=== PATIENT | male | born 1950 | race Caucasian/White ===

== ENCOUNTER 2016-06-02 09:27 | Day surgery (SDC) | payer OTHER, MEDICARE ==
[2016-05-31 17:41] VITALS: BMI 33.9
--- NOTE | 2016-06-02 08:22 | HP ---
[facility] - Chief Complaint Chief Complaint: left elbow pain - Past Medical History Allergies/Adverse Reactions: Allergies Allergy/AdvReac Type Severity Reaction Status Date / Time Penicillins Allergy Verified 05/31/16 17:25 - Current Medications Current Medications: Home Medications Medication Instructions Recorded Atorvastatin Ca [Lipitor] 20 mg PO DAILY 05/31/16 Enalapril Maleate 2.5 mg PO DAILY 05/31/16 Hydrocodone/Acetaminophen 1 each PO Q6H #40 tablet MDD 4 06/02/16 [Hydrocodon-Acetaminoph 7.5-325] Satellite Physical Exam - Physical Examination General Appearance: Well Nourished, Well Developed, Alert & Oriented x3 ENT: Clear Lung: Normal air movement Heart: Regular rate & rhythm Extremities: Other (left elbow- + ttp, + tinels emg + cubital tunnel syndrome) Neurological: Intact, Alert, Oriented Satellite Impression/Plan - Impression/Plan Impression: left elbow cubital tunnel syndrome Operative Procedure: left ulna nerve transposition Date to be Performed: 06/02/16
[2016-06-02] MEDS ORDERED: oxyCODONE HCL 5 MG TABLET PO PRN (10:59)
[2016-06-02] MEDS ORDERED: ACETAMINOPHEN 325 MG TABLET (FP) PO PRN (10:59)
[2016-06-02] MEDS ORDERED: ONDANSETRON 4 MG/2 ML VIAL IVPUSH PRN (10:59)
[2016-06-02] MEDS ORDERED: PROPOFOL 20 ML ONE ×2 (11:03)
[2016-06-02] MEDS ORDERED: MIDAZOLAM HCL 2 MG/2 ML SINGLE DOSE VIAL ONE (11:03)
[2016-06-02] MEDS ORDERED: ceFAZolin SODIUM 1 GM VIAL ONE (11:23)
[2016-06-02] MEDS ORDERED: ceFAZolin SODIUM 1 GM VIAL IVPB ONE (11:27)
[2016-06-02] MEDS ORDERED: LIDOCAINE HCL 1%, 10 MG/ML (20ML VIAL) IJ ONE (11:32)
[2016-06-02] MEDS ORDERED: BUPIVACAINE HCL/PF 0.5% (5MG/ML) 10 ML VIAL IJ ONE (11:32)
[2016-06-02] MEDS ORDERED: DEXAMETHASONE SOD PHOSPHATE 4 MG/1 ML VIAL ONE (11:58)
--- NOTE | 2016-06-02 12:12 | OP ---
Operative Note - Note: Operative Date: 06/02/16 ([facility]) Pre-Operative Diagnosis: left cubital tunnel syndrome Operation: left ulna nerve transposition- subcutaneous Post-Operative Diagnosis: Same as Pre-op Surgeon: Babatunde Lyles Corporate Development Associate: Lazaro Ramirez Anesthesiologist/NONDESTRUCTIVE TESTER: Krista Hernández Anesthesia: General, Local Estimated Blood Loss (mls): 0 (tourniquet) Operative Report Dictated: Yes
--- NOTE | 2016-06-02 12:59 | OP ---
DATE OF OPERATION: 06/02/2016 PREOPERATIVE DIAGNOSIS: Left elbow cubital tunnel syndrome. POSTOPERATIVE DIAGNOSIS: Left elbow cubital tunnel syndrome. PROCEDURE: Left elbow subcutaneous ulnar nerve transposition. SURGEON: Melchor Sadler MD APARTMENT PROPERTY MANAGER: LM Galeana; Krista Hernández CRNA ANESTHESIA: LMA anesthesia. DRAINS: None. INJECTION: Marcaine 0.5% of 15 mL and lidocaine 1% mixture. COMPLICATIONS: None. SPECIMENS: None. BLOOD LOSS: None. BLOOD GIVEN: None. FLUID REPLACEMENT: 500 mL. INDICATIONS: This patient is a 66-year-old male with the preoperative diagnosis of severe left cubital tunnel syndrome. After understanding the potential risks, complications, alternatives, and benefits of surgery, and the risks of nonsurgical treatment, the patient elected to undergo this procedure. DESCRIPTION OF PROCEDURE: The patient was brought to the operating room, peripheral IV placed, IV sedation was given, and 1 gram of IV Ancef was given. LMA anesthesia was induced. Ample Webril was placed on the left upper arm and tourniquet was applied. The left upper extremity was prepped and draped in sterile fashion, elevated, exsanguinated with an Esmarch bandage, and the tourniquet was inflated to 250 mmHg. A curvilinear incision was marked out with a marking pen over the medial epicondyle. Marcaine 15 mL of 0.5% and 1% lidocaine mixture was injected around the incision. The incision was made with a number 15 scalpel blade. Subcutaneous hemostasis was achieved with the bipolar cautery. Dissection done through the fat with Metzenbaum scissors. Self-retaining Weitlaner retractors were placed into the wound. The medial epicondyle and the origin of the flexor pronator mass was identified and blunt dissection was done the flexor pronator mass fascia from the undersurface of the adipose layer. Next, the Weitlaner retractors were placed deeper for better retraction and visualization. The ulnar nerve was identified first just proximal to medial epicondyle. Careful circumferential dissection was done as well as opening up the cubital tunnel. A Van drain with irrigation was passed around it for protection, mild retraction, and visualization. [place] was used to retract proximally. Circumferential dissection was done around the ulnar nerve. It was released from its tunnel as well as the medial head of the triceps and the medial intramuscular septum. Blunt dissection was done circumferentially more proximally with my index finger. We then turned our attention distal to the medial epicondyle. All crossing neurovascular structures were saved. Dissection was done circumferentially with the Metzenbaum scissors again. Steward ligament was cut. The 2 heads of the FCU were cut and I was able to transpose it anterior to the medial epicondyle. There were no significant points of compression. The area was copiously irrigated and washed out, and again the distal and proximal extensor ligaments were was checked with my finger. Next, we put the ulnar nerve down in its new bed and tacked down the adipose layer to the proximal tendon and periosteum of the medial epicondyle with 0 Vicryl suture. We then moved the elbow to confirm that the ulnar nerve was not bound down. The area was irrigated and washed out. Vicryl 2-0 was used to close the deep dermal layer and final skin reapproximation was done with running subcuticular 4-0 Biosyn stitch. It was washed and dried and then covered with Steri-Strips, 4 x 4 gauze, Webril, and a 5-inch posterior Ortho-Glass splint was applied and wrapped with James bandages. The tourniquet was taken down after a total tourniquet time of 35 minutes. There were no complications during the case. The patient tolerated the procedure quite well and was brought to the ambulatory recovery room in stable condition. MELCHOR SADLER M.D. [id number]
[2016-06-02 13:09] VITALS: TEMP 97.8
[2016-06-02 14:15] VITALS: BP 108/68; PULSE 61
== END 2016-06-02 14:15 | disposition home or self-care (01) ==
LOC: JASU-SURG 09:27
PROVIDERS: ATTEND Orthopaedic Surgery
PROC: 01S40ZZ Reposition Ulnar Nerve, Open Approach (ICD-10-PCS; principal; 2016-06-02 11:00)
DX: G56.22 Lesion of ulnar nerve, left upper limb (principal)
CPT/HCPCS: 94760